=== PATIENT | female | born 1955 | race African-American/Black ===

== ENCOUNTER 2018-01-29 05:34 | Inpatient (IN) | payer BC ==
[2018-01-14 09:55] LABS: URINE BILIRUBIN NEGATIVE (Negative); URINE BLOOD NEGATIVE (Negative); URINE CLARITY CLEAR; URINE COLOR YELLOW; URINE GLUCOSE-RANDOM* NEGATIVE (Negative); URINE KETONES NEGATIVE (Negative); URINE LEUKOCYTES-REFLEX NEGATIVE (Negative); URINE NITRITE-REFLEX NEGATIVE (Negative); URINE PROTEIN (DIPSTICK) TRACE (Negative); URINE SPECIFIC GRAVITY >= 1.030 (1.005-1.035); URINE UROBILINOGEN 0.2 E.U./dl (0.2-1.0)
[2018-01-14 10:00] LABS: HEMATOCRIT 37.8 % (37.0-47.0); HEMOGLOBIN 12.8 gm/dL (12.0-15.0); MCV 97.3 fL (80.0-100.0); RBC 3.88 mil/uL (4.20-5.00); WBC 5.4 thou/uL (4.0-11.0)
[2018-01-14 10:06] LABS: ALBUMIN 3.4 g/dL (3.4-5.0); CALCIUM 9.1 mg/dL (8.5-10.1); CREATININE 1.1 mg/dL (0.6-1.0); POTASSIUM 4.2 mmol/L (3.5-5.1)
[2018-01-14 10:21] LABS: PROTIME 10.3 Seconds (9.3-11.4)
[~2018-01-29] VITALS: Ht 167.6 cm; Wt 117.9 kg
--- NOTE | ~2018-01-29 | EKG ---
[address] [place] [address] ELECTROCARDIOGRAM REPORT Name: FABIANO AZEVEDOYURI R Room #: PRE IN [facility]#: [id number] Admission: Attend Phys: Solomon Carroll MD Discharge: Date of : 57 Report #: [id number] THIS REPORT FOR: //name// [facility] Test Date: 2018-01-14 Test Time: 09:55:09 Pat Name: YURI AZEVEDO Department: Room: Gender: F Docket Specialist: kirsten : [id number] Requested By: Solomon Carroll Order Number: [id number] MD: Nabil Bond Measurements Intervals [place] Rate: 75 P: 37 MT: 168 QRS: -30 QRSD: 116 T: 22 QT: 398 QTc: 445 Interpretive Statements Sinus rhythm Poor R wave progression Leftward axis Left ventricular hypertrophy Baseline wander in lead(s) V4 No previous ECG available for comparison Electronically Signed On 01-15-2018 18:43:49 CDT by Nabil Bond [email or web address] <ELECTRONICALLY SIGNED> By: Nabil Bond MD, [facility] 01/15/18 1843 Nabil Bond MD, [facility] /EPI
--- NOTE | ~2018-01-29 | O ---
[facility] [place] [address] OPERATIVE REPORT Name: YURI MCDONNELL Room #: 460-P [facility] IN M.R.#: [id number] Admission: 01/29/18 Attend Phys: Solomon Carroll MD Discharge: 01/31/18 Date of : 57 Report #: [id number] THIS REPORT FOR: //name// CC: Kareem Frias Solomon Carroll DATE OF SERVICE: 01/29/2018 PREOPERATIVE DIAGNOSIS: Left knee valgus osteoarthritis. POSTOPERATIVE DIAGNOSIS: Left knee valgus osteoarthritis. PROCEDURE: Left total knee arthroplasty using Navio system. SURGEON: Solomon Carroll MD. COGENERATION OPERATOR: Lorraine Howard PA-C. INDICATIONS FOR COGENERATION OPERATOR: Throughout the case, extensive retraction and manipulation of the knee was required. This was afforded to me by my marketing assistant manager. ANESTHESIA: LMA with an adductor canal block. IMPLANTS: Falcon and Nephew size 5 Journey Oxinium posterior stabilized femur, a size 4 tibia, size 12 highly constrained polyethylene, size 29 patella. TOURNIQUET TIME: 86 minutes. ESTIMATED BLOOD LOSS: 25 mL. COMPLICATIONS: None. SPECIMEN: None. CONDITION WHILE IN THE OPERATING ROOM: Stable. INDICATION FOR PROCEDURE: The patient is a 63-year-old female with severe left knee valgus osteoarthritis. She failed conservative measures for this and after discussion with her, she elected for left total knee arthroplasty. DESCRIPTION OF PROCEDURE: Risks, benefits, alternatives, complications were discussed in detail with the patient including but not limited to risk of anesthesia, risk of damage to nerves, arteries, blood vessels, risk for infection, bleeding, risk for continued knee pain and need for reoperation. Informed consent was obtained from the patient. Left knee was appropriately marked in the preoperative holding area. IV Ancef was given for preoperative [facility] [address] [place] [address] OPERATIVE REPORT Name: FABIANOWILLEM EARLYYURI HALE Room #: 460-P [facility] IN M.R.#: [id number] Admission: 01/29/18 Attend Phys: Solomon Carroll MD Discharge: 01/31/18 Date of : 57 Report #: [id number] antibiotics. Adductor canal block was placed by Anesthesia. She was brought to the operating room and placed in the supine position on the operating room table. LMA anesthesia was induced without complication. Tourniquet was placed on the left thigh. Left lower extremity was prepped and draped in normal sterile fashion. Timeout was performed properly identifying the patient and procedure as well as the instrumentation and implants. All in the operating room were in agreement. Left lower extremity was exsanguinated, tourniquet was inflated. Tourniquet time 36 minutes. Standard midline approach to knee was made with 10 blade through the skin. Dissection was taken down sharply to the fascia, and deep flaps were developed medially and laterally. Fresh 10 blade was used to make a medial parapatellar arthrotomy and the knee was inspected. There was severe lateral compartment osteoarthritis with moderate patellar and medial compartment involvement. It was decided to proceed with total knee arthroplasty. ACL and PCL were removed sharply. Osteophytes were removed from the femur and the tibia. Reference pins were then placed in the femur and tibia for the Navio navigation system. The knee was then mapped digitally, and the intraoperative plain was made using the NavHomeStars computerized navigation system. We sized the size 5 for the femur and a 4 for the tibia. After acceptance of the plan, the distal femoral cut was made with a Navio bur, and the size 5, 5 and 1 Journey cutting block was placed and the cuts were made in the femur. After this, tibial resection guide was pinned in place and tibial resection was made with a saw. Flexion and extension gaps were then checked and found to be slightly tight in extension laterally and so a limited lateral release was then performed using the pie crust technique. After this, the knee was balanced laterally. She was still loose in extension and flexion medially, and it was felt that this would need to be made out for with a highly constrained implant based on her preoperative valgus deformity. After this, a size 4 tibial trial was placed, size 5 femoral trial was placed and the box cut was made. This was then trialed with a size 12 polyethylene and found to have good stability and range of motion. 9 mm was taken off the posterior surface of the patella and a size 29 patellar resurfacing button was placed. Knee was taken through range of motion, found to be stable, found to have a good balance in flexion and extension both medially and laterally. After this, trial components were removed. Bony ends were thoroughly irrigated with normal saline. Final size 4 tibia, size 5 Journey Oxinium posterior stabilized femur and a size 29 patella were cemented in place using standard cementation techniques. While the cement cured, periarticular injection consisting of morphine, ropivacaine, epinephrine and Toradol was placed around the knee joint. After the cement cured, the tourniquet was deflated. Hemostasis was obtained with Bovie cautery. Final size 12 had a constrained polyethylene was placed. A gram of vancomycin was placed deep in the joint. Fascia was closed with 0 Vicryl, skin was closed with 2-0 Vicryl, 3-0 Monocryl and MARY dressing was applied. The patient tolerated [address] [address] OPERATIVE REPORT Name: EMI MCDONNELLKiki Siegel Room #: 460-P DIS IN M.R.#: [id number] Admission: 01/29/18 Attend Phys: Solomon Carroll MD Discharge: 01/31/18 Date of : 57 Report #: [id number] this procedure well and went to recovery room under care of Anesthesia postoperatively. <ELECTRONICALLY SIGNED> By: Solomon Carroll MD 02/03/18 0748 1037 1212 Solomon Carroll MD /nt
[~2018-01-29 05:34] MED LIST: ALLEGRA ALLERG180 MG PO; CALCIUM 500 +1 EAC5 PO; CENTRUM SILVER1 EAC4 PO; CYMBALTA60 MG PO; FISH OIL 1,001000 M2 PO; LASIX 40 MG TAB40 M2 PO; LYRICA 50 MG50 MG PO; MOBIC15 MG PO; NEXIUM40 MG PO; NORCO 5-325 TA1 EACH PO; PLAQUENIL200 MG PO; PROBIOTIC1 EAC1 PO; SUPER B COMPLE150 MG PO; VALACYCLOVIR1000 MG PO; VITAMIN D-32000 UNIT PO
[2018-01-29 07:05] VITALS: BP 143/73
[2018-01-29 13:45] VITALS: BP 130/75
[2018-01-29 17:49] VITALS: BP 153/93
[2018-01-29 17:51] VITALS: BP 153/93
[2018-01-29 19:20] VITALS: BP 159/83
[2018-01-30 00:41] VITALS: BP 159/83
[2018-01-30 03:43] VITALS: BP 154/82
[2018-01-30 06:09] LABS: HEMATOCRIT 30.6 % (37.0-47.0); HEMOGLOBIN 10.6 gm/dL (12.0-15.0); MCH 33.2 pg (26.0-34.0); MCHC 34.4 g/dL (28.0-37.0); MCV 96.4 fL (80.0-100.0); RBC 3.18 mil/uL (4.20-5.00); RDW 14.7 % (10.5-14.5); WBC 9.4 thou/uL (4.0-11.0)
[2018-01-30 08:00] VITALS: BP 119/68
[2018-01-30 08:14] VITALS: BP 119/68
[2018-01-30] MEDS ORDERED: TRI-BUFFERED A325 M1 PO (13:03)
[2018-01-30 16:00] VITALS: BP 144/65
[2018-01-30 19:30] VITALS: BP 141/70
[2018-01-31 03:43] VITALS: BP 155/77
[2018-01-31 06:15] LABS: HEMOGLOBIN 10.8 gm/dL (12.0-15.0); MCH 33.6 pg (26.0-34.0); MCHC 34.8 g/dL (28.0-37.0); MCV 96.4 fL (80.0-100.0); RBC 3.21 mil/uL (4.20-5.00); RDW 14.7 % (10.5-14.5); WBC 7.5 thou/uL (4.0-11.0)
[2018-01-31 10:44] VITALS: BP 155/77
== END 2018-01-31 12:17 | disposition home or self-care (01) | DRG 470 ==
LOC: 4W 05:34 → TBA 05:34 → PRE 05:35 → 4W 14:03 → PRE 15:17 → 4W 01-31 12:17
PROVIDERS: Orthopaedic Surgery
PROC: 0SRD069 Replacement of Left Knee Joint with Oxidized Zirconium on Polyethylene Synthetic Substitute, Cemented, Open Approach (ICD-10-PCS; principal; 2018-01-29)
DX: M17.12 Unilateral primary osteoarthritis, left knee (principal); M32.9 Systemic lupus erythematosus, unspecified; K21.9 Gastro-esophageal reflux disease without esophagitis; F32.9 Major depressive disorder, single episode, unspecified; M79.7 Fibromyalgia; Z98.42 Cataract extraction status, left eye; Z98.41 Cataract extraction status, right eye; Z79.899 Other long term (current) drug therapy
CPT/HCPCS: 10047; 50010; 50101; 50415; 50954; 51130; 51225; 51771; 53000; 53078; 54118; 56527; 56528; 57095; 57103; 57109; 57110; 57113; 57127; 62110; 62900; 64042; 70005

== ENCOUNTER 2018-06-04 05:35 | Inpatient (IN) | payer BC ==
[2018-05-18 12:59] LABS: HEMATOCRIT 39.4 % (37.0-47.0); HEMOGLOBIN 13.1 gm/dL (12.0-15.0); MCH 31.6 pg (26.0-34.0); MCHC 33.3 g/dL (28.0-37.0); MCV 94.8 fL (80.0-100.0); RBC 4.15 mil/uL (4.20-5.00); RDW 15.5 % (10.5-14.5); WBC 6.2 thou/uL (4.0-11.0)
[2018-05-18 13:05] LABS: URINE CLARITY CLEAR; URINE COLOR YELLOW; URINE GLUCOSE-RANDOM* NEGATIVE (Negative); URINE PROTEIN (DIPSTICK) NEGATIVE (Negative); URINE SPECIFIC GRAVITY <= 1.005 (1.005-1.035)
[2018-05-18 13:06] LABS: URINE BILIRUBIN NEGATIVE (Negative); URINE BLOOD NEGATIVE (Negative); URINE KETONES NEGATIVE (Negative); URINE LEUKOCYTES-REFLEX NEGATIVE (Negative); URINE NITRITE-REFLEX NEGATIVE (Negative); URINE UROBILINOGEN 0.2 E.U./dl (0.2-1.0)
[2018-05-18 13:16] LABS: PROTIME 10.2 Seconds (9.3-11.4)
[2018-05-18 13:20] LABS: ALBUMIN 3.9 g/dL (3.4-5.0); CALCIUM 9.1 mg/dL (8.5-10.1); POTASSIUM 4.5 mmol/L (3.5-5.1); TOTAL BILIRUBIN 0.2 mg/dL (<0.1-1.0); TOTAL PROTEIN 7.6 g/dL (6.4-8.2)
[~2018-06-04] VITALS: Ht 167.6 cm; Wt 116.6 kg
[~2018-06-04 05:35] MED LIST changes: +ALEVE220 MG PO; +ASPIR 8181 MG PO; +LYRICA225 MG PO; +TOPROL XL25 MG PO; +TRI-BUFFERED A325 M1 PO
[2018-06-04 08:58] VITALS: BP 141/62
--- NOTE | 2018-06-04 15:32 | NUR ---
PT ARRIVED ON UNIT FROM POST OP AT 1515. PT IS A/OX4 WITH NO ISSUES OF PAIN OR NAUSEA. PT WAS UP WITH PT WITHIN 30 MINS OF ARRIVAL ON UNIT WITH NO ISSUES. WILL CONTINUE TO MONITOR PT
[2018-06-04 16:01] VITALS: BP 146/77
[2018-06-04 19:09] VITALS: BP 131/65
[2018-06-05 03:49] VITALS: BP 125/70
[2018-06-05 05:28] LABS: HEMATOCRIT 31.1 % (37.0-47.0); HEMOGLOBIN 10.4 gm/dL (12.0-15.0); MCH 32.1 pg (26.0-34.0); MCHC 33.5 g/dL (28.0-37.0); MCV 95.7 fL (80.0-100.0); RBC 3.25 mil/uL (4.20-5.00); RDW 16.1 % (10.5-14.5); WBC 10.3 thou/uL (4.0-11.0)
--- NOTE | 2018-06-05 07:26 | NUR ---
PROGRESS PT RATING PAIN A 5 TO 8 TAKING HYDROCODONE, MORPHINE AND SCHEDULED OXYCONTIN WITH EFFECT. PT RESTED ON AND OFF ALL SHIFT. RIGHT FOOT WARM WITH SENSATION INTACT GOOD MEREDITH AND DORSIFLEXION, MARY DRSG INTACT IVF'S INFUSING ORDERED. PT ALREADY OOB WITH THERAPY TO [facility].
[2018-06-05 07:30] VITALS: BP 129/67
[2018-06-05 10:35] VITALS: BP 129/67
[2018-06-05] MEDS ORDERED: TRI-BUFFERED A325 M1 PO (13:23)
--- NOTE | 2018-06-05 13:36 | NUR ---
PT ADMITTED RELATED TO RIGHT TKR. CM REVIEWED CHART ANDSPOKE WITH CARE TEAM. CM MET WITH T AT BEDSIDE THIS DAY. PT IS A&O X4. CM ROLE INTRODUCED. PT LIVES IN A HOUSE ALONE WITH 6 STEPS TO ENTER AND NONE INSIDE. PT INDICATED SHE HAS A CANE AND A FWW FOR USE UPON DC. PT INDICATED SHE WILL DO OP THERAPY AT [facility] ON MAIN. IT IS ANTICIPATED THAT PT WILL DC HOME TODAY. NO OTHER CM INTERVENTION INDICATED. CASE CLOSED.
[2018-06-05 13:44] VITALS: BP 106/57
[2018-06-05 15:02] VITALS: BP 106/57
--- NOTE | 2018-06-05 15:22 | NUR ---
PT DISCHARGED HOME. PT STABLE THROUGHOUT SHIFT, WORKED WELL WITH PT. PT GIVEN DISCHARGE INSTRUCTIONS, RX'S. PT LEFT UNIT VIA WHEELCHAIR TO PRIVATE VEHICLE.
--- NOTE | 2018-06-07 10:53 | O ---
[facility] [place] [address] OPERATIVE REPORT Name: YURI MCDONNELL Room #: 458-P [facility] IN M.R.#: [id number] Admission: 06/04/18 Attend Phys: Solomon Carroll MD Discharge: 06/05/18 Date of : 57 Report #: [id number] THIS REPORT FOR: //name// CC: Kareem Carroll DATE OF SERVICE: 06/04/2018 PREOPERATIVE DIAGNOSES: 1. Right knee valgus osteoarthritis. 2. Morbid obesity with body mass index of 41. POSTOPERATIVE DIAGNOSIS: 1. Right knee valgus osteoarthritis. 2. Morbid obesity with a body mass index of 41. PROCEDURE: Right total knee arthroplasty using Navio robotic assistance. SURGEON: Solomon Carroll MD. SPECIAL NEEDS LIBRARIAN: Lorraine Howard PA-C INDICATION FOR SPECIAL NEEDS LIBRARIAN: Throughout the case, extensive retraction and manipulation of the knee was required. This was afforded to me by my tutoring assistant. ANESTHESIA: LMA with an adductor canal block. IMPLANTS: Falcon and Nephew size 5 Journey BCS Oxinium femur, a size 4 tibia, size 12 polyethylene, size 29 patella. TOURNIQUET TIME: 68 minutes. ESTIMATED BLOOD LOSS: 25 mL. COMPLICATIONS: None. SPECIMENS: None. CONDITION UPON LEAVING THE OPERATING ROOM: Stable. INDICATIONS FOR PROCEDURE: The patient is a 63-year-old female with right knee valgus osteoarthritis. She failed conservative measures for this and after discussion with her, she elected for right total knee arthroplasty. DESCRIPTION OF PROCEDURE: Risks, benefits, alternatives, complications were discussed in detail with the patient including but not limited to risk of [facility] [address] [place] [address] OPERATIVE REPORT Name: FABIANO AZEVEDOMORENOYURI R Room #: 458-P DIS IN .R.#: [id number] Admission: 06/04/18 Attend Phys: Solomon Carroll MD Discharge: 06/05/18 Date of : 57 Report #: [id number] anesthesia; risk of damage to nerves, arteries, blood vessels; risk for infection, bleeding; risk for continued knee pain; need for reoperation. Informed consent was obtained from the patient. Right knee was appropriately marked in the preoperative holding area. IV Ancef was given for preoperative antibiotics. She was brought to the operating room and placed in supine position on operating room table. LMA anesthesia was induced without complication. Tourniquet was placed on the right thigh. Right lower extremity was prepped and draped in normal sterile fashion. Timeout was performed, properly identifying the patient and procedure as well as the instrumentation and implants. All in the operating room were in agreement. Right lower extremity was exsanguinated, tourniquet was inflated. Tourniquet time was 68 minutes. Standard midline approach to knee was made with 10 blade through the skin. Dissection was taken down sharply to the fascia and deep flaps were developed medially and laterally. Fresh 10 blade was used to make a medial parapatellar arthrotomy and the knee was inspected. There was severe valgus osteoarthritic change. ACL and PCL were removed sharply. Osteophytes were removed from the femur. Reference pins were then placed in the femur and the tibia and the knee was then digitally mapped using the [employer] Robotic System. Intraoperative plan was made and we sized to a size 5 femur and size 4 tibia with a 10 space. After acceptance of the intraoperative plan, the distal femoral cut was made with the Navio bur. The 5-in-1 cutting block for the femur was then placed and the femoral cuts were made. The remainder of the menisci were removed with Bovie cautery and the knee was hyperflexed. Tibia subluxed anteriorly and the tibial resection was made using the tibial resection guide and this was placed using the NavMediSwipe System. After tibial resection, flexion and extension gaps were checked and found to have good balance in flexion and extension both medially and laterally. Tibia was sized, found to be a size 4. Size 4 tibial trial was pinned, placed and punched. A size 5 femoral trial was placed and the box cut was made. This was then trialed with a size 10, then 11 and then a 12 polyethylene. The size 12 polyethylene had the best balance medially and laterally with a 1-2 mm of laxity throughout range of motion both manually as well as digitally. 9 mm was taken off the posterior surface of the patella and a size 29 patellar button trial was placed. Knee was taken through range of motion, found to be stable, found to have good patellar tracking. After this, trial components were removed. Bony ends were thoroughly irrigated with normal saline. A final size 4 tibia, size 5 Journey II BCS Oxinium femur and a size 29 patella were cemented in place using standard cementation techniques. After a while, the cement cured, a periarticular injection consisting of morphine, ropivacaine, epinephrine and Toradol was placed around the joint capsule. After the cement cured, the tourniquet was deflated. Hemostasis was obtained with Bovie cautery. A final size 12 polyethylene was placed. A gram of vancomycin was placed deep in the joint. The fascia was closed with 0 Vicryl, skin was closed with 2-0 Vicryl, 3-0 Monocryl. [place] [address] [address] OPERATIVE REPORT Name: YURI MCDONNELL Room #: 458-P DIS IN M.R.#: [id number] Admission: 06/04/18 Attend Phys: Solomon Carroll MD Discharge: 06/05/18 Date of : 57 Report #: [id number] and a MARY dressing was applied. The patient tolerated this procedure well and went to recovery room under care of anesthesia postoperatively. <ELECTRONICALLY SIGNED> By: Solomon Carroll MD 06/07/18 1053 1234 1256 Solomon Carroll MD /nt
== END 2018-06-05 15:33 | disposition home or self-care (01) | DRG 470 ==
LOC: PRE 05:35 → TBA 06:13 → 4W 06:13 → PRE 12:34 → 4W 14:42 → PRE 14:46 → ENTRNSPT 06-05 15:14 → EDTRNSPTSTS 06-05 15:16 → 4W 06-05 15:33
PROVIDERS: ADMIT Orthopaedic Surgery
PROC: 0SRC069 Replacement of Right Knee Joint with Oxidized Zirconium on Polyethylene Synthetic Substitute, Cemented, Open Approach (ICD-10-PCS; principal; 2018-06-04)
PROC: 8E0Y0CZ Robotic Assisted Procedure of Lower Extremity, Open Approach (ICD-10-PCS; principal; 2018-06-04)
DX: M17.11 Unilateral primary osteoarthritis, right knee (principal); Z68.41 Body mass index [BMI] 40.0-44.9, adult; E66.01 Morbid (severe) obesity due to excess calories
CPT/HCPCS: 10047; 50010; 50101; 50415; 50954; 51130; 51225; 51771; 53000; 53078; 54118; 55372; 56527; 56528; 57095; 57103; 57109; 57110; 57113; 57127; 62110; 62900; 70005

== ENCOUNTER → 2018-10-30 | Outpatient (CLI) | payer OTHER | LOC: CAT 11:52 | DX: Z13.6 Encounter for screening for cardiovascular disorders (principal); E78.00 Pure hypercholesterolemia, unspecified; I25.10 Atherosclerotic heart disease of native coronary artery without angina pectoris ==

== ENCOUNTER → 2019-09-22 | Outpatient (CLI) | payer OTHER, MEDICARE | LOC: SJCVC 11:25 | DX: I25.10 Atherosclerotic heart disease of native coronary artery without angina pectoris (principal); I10 Essential (primary) hypertension; E78.00 Pure hypercholesterolemia, unspecified; R60.9 Edema, unspecified; K21.9 Gastro-esophageal reflux disease without esophagitis ==

== ENCOUNTER → 2020-03-24 | Outpatient (CLI) | payer OTHER, MEDICARE | LOC: SJCVCIMAG 10:09 | PROVIDERS: ATTEND Internal Medicine Cardiovascular Disease | DX: I07.1 Rheumatic tricuspid insufficiency (principal); R94.31 Abnormal electrocardiogram [ECG] [EKG]; I25.10 Atherosclerotic heart disease of native coronary artery without angina pectoris; I10 Essential (primary) hypertension; E78.00 Pure hypercholesterolemia, unspecified; K21.9 Gastro-esophageal reflux disease without esophagitis; Z79.899 Other long term (current) drug therapy ==

== ENCOUNTER → 2020-12-22 | Outpatient (CLI) | payer OTHER, MEDICARE | LOC: SJCVC 09:38 | PROVIDERS: ATTEND Internal Medicine Cardiovascular Disease | DX: R94.31 Abnormal electrocardiogram [ECG] [EKG] (principal); I25.10 Atherosclerotic heart disease of native coronary artery without angina pectoris; E78.00 Pure hypercholesterolemia, unspecified; R60.9 Edema, unspecified; E78.5 Hyperlipidemia, unspecified; R06.00 Dyspnea, unspecified; K21.9 Gastro-esophageal reflux disease without esophagitis; I13.10 Hypertensive heart and chronic kidney disease without heart failure, with stage 1 through stage 4 chronic kidney disease, or unspecified chronic kidney disease; N18.2 Chronic kidney disease, stage 2 (mild); M19.90 Unspecified osteoarthritis, unspecified site; Z98.890 Other specified postprocedural states; Z88.8 Allergy status to other drugs, medicaments and biological substances; Z79.82 Long term (current) use of aspirin; Z79.899 Other long term (current) drug therapy; Z82.49 Family history of ischemic heart disease and other diseases of the circulatory system ==